=== PATIENT | male | born 1955 | race African-American/Black ===

== ENCOUNTER 2016-10-16 07:04 | Inpatient (IN) | payer MEDICAID ==
[~2016-10-16] VITALS: Ht 180.3 cm; Wt 77.3 kg
[~2016-10-16 07:04] MED LIST: TAMS0.4C32 PO
[2016-10-16] MEDS ORDERED: KETOROLAC TROMETHAMINE 60 MG/2 ML VIAL IM ONE (07:45)
[2016-10-16] MEDS ORDERED: KETOROLAC TROMETHAMINE 30 MG/ML VIAL IM ONE (07:45)
[2016-10-16 07:56] LABS: BASOPHILS % (AUTO) 0.3 % (0.0-2.0); EOSINOPHILS % (AUTO) 3.2 % (1.0-6.0); HEMOGLOBIN 8.6 g/dL (13.5-17.5); LYMPHOCYTES # (AUTO) 1.2 K/uL (1.0-4.8); LYMPHOCYTES % (AUTO) 11.4 % (22.0-44.0); MEAN CORPUSCULAR HEMOGLOBIN 26.6 pg (26.0-34.0); MEAN CORPUSCULAR HGB CONC 31.8 G/dL (31.0-37.0); MEAN CORPUSCULAR VOLUME 84 fL (80-100); MONOCYTES # (AUTO) 0.9 K/uL (0.1-1.0); NEUTROPHILS # (AUTO) 8.2 K/uL (1.8-7.7); NEUTROPHILS % (AUTO) 77.1 % (40.0-70.0); PLATELET COUNT (AUTO) 560 K/uL (150-450); RED BLOOD CELL COUNT(AUTO) 3.22 MIL/uL (4.50-5.90); WHITE BLOOD COUNT (AUTO) 10.7 K/uL (4.5-11.0)
[2016-10-16 08:06] LABS: CALCIUM, TOTAL 8.8 mg/dL (8.8-10.5); CREATININE 1.48 mg/dL (0.60-1.30); POTASSIUM 4.3 mmol/L (3.5-5.1)
[2016-10-16 08:12] LABS: ALBUMIN 3.1 g/dL (3.4-5.0); BILIRUBIN,TOTAL 0.2 mg/dL (0.1-1.0); TOTAL PROTEIN, SERUM 7.3 g/dL (6.4-8.2)
[2016-10-16 08:24] LABS: APPEARANCE,URINE CLEAR (CLEAR); GLUCOSE, URINE (UA) NEGATIVE (NEGATIVE); KETONES,URINE NEGATIVE (NEGATIVE); LEUKOCYTE ESTERASE ,URINE NEGATIVE (NEGATIVE); OCCULT BLOOD,URINE TRACE (NEGATIVE); PH,URINE 6.5 (5.0-8.0); PROTEIN,URINE TRACE (NEGATIVE)
[2016-10-16 08:29] LABS: ADD UA MICROSCOPIC YES
[2016-10-16 08:30] LABS: SQUAMOUS EPITHELIAL CELL,UR Rare /LPF (None Seen); WBC,URINE None Seen /HPF (0-5)
[2016-10-16] MEDS ORDERED: PANTOPRAZOLE SODIUM 40 MG/VIAL IVP ONE (09:15)
[2016-10-16] MEDS ORDERED: MORPHINE SULFATE 4 MG/ML SYRINGE IVP PRN (10:00)
[2016-10-16] MEDS ORDERED: ONDANSETRON HCL 4 MG/2 ML VIAL IVP PRN ×2 (10:00→15:30)
[2016-10-16 11:20] VITALS: BP 140/82
[2016-10-16] MEDS ORDERED: INFLUENZA VIRUS VACCINE QVS 2016-17 (3YR+)/PF 60 MCG/0.5 ML SYRINGE IM ONE (12:00)
[2016-10-16] MEDS ORDERED: PNEUMOCOCCAL VACCINE POLYVALENT 0.5 ML VIAL [PPSV23] IM ONE (12:00)
[2016-10-16] MEDS ORDERED: ALBUTEROL SULFATE 2.5 MG/0.5 ML NEB SOLUTION NEB PRN (15:30)
[2016-10-16] MEDS ORDERED: MAGNESIUM HYDROXIDE SUSPENSION 30 ML UDCUP PO PRN (15:30)
[2016-10-16] MEDS ORDERED: ACETAMINOPHEN 325 MG TABLET PO PRN (15:30)
[2016-10-16] MEDS ORDERED: IPRATROPIUM BROMIDE 0.5 MG/2.5 ML NEB SOLUTION NEB PRN (15:30)
[2016-10-16] MEDS ORDERED: BISACODYL 10 MG RECTAL RECTAL SUPPOSITORY PR PRN (15:30)
[2016-10-16 16:25] VITALS: BP 146/82
[2016-10-16 19:43] VITALS: BP 149/87
[2016-10-16] MEDS: DOCUSATE SODIUM 100 MG CAPSULE PO SCH (21:10)
[2016-10-16] MEDS: MORPHINE SULFATE 2 MG/ML SYRINGE IVP PRN (21:10)
[2016-10-16] MEDS: ZOLPIDEM TARTRATE 5 MG TABLET PO PRN (22:20)
[2016-10-16 23:53] VITALS: BP 138/70
[2016-10-17] MEDS ORDERED: PROPOFOL 1% 20 ML VIAL IVP ONE (00:41)
[2016-10-17 05:46] VITALS: BP 96/48
[2016-10-17 06:01] VITALS: BP 134/90
[2016-10-17] MEDS: MORPHINE SULFATE 2 MG/ML SYRINGE IVP PRN ×3 (06:11→23:29)
[2016-10-17 06:32] LABS: PROTHROMBIN TIME 10.7 SEC (9.4-11.6)
[2016-10-17 07:28] VITALS: BP 149/89
[2016-10-17] MEDS: DOCUSATE SODIUM 100 MG CAPSULE PO SCH ×2 (08:35→20:14)
[2016-10-17] MEDS: PANTOPRAZOLE SODIUM 40 MG/VIAL IVP SCH (08:42)
[2016-10-17] MEDS ORDERED: PANTOPRAZOLE SODIUM 40 MG/VIAL IVP SCH (09:00)
[2016-10-17] MEDS ORDERED: SODIUM CHLORIDE 0.9% 1,000 ML IV ONE ×2 (10:51→11:00)
[2016-10-17 16:20] LABS: CARCINOEMBRYONIC AG 9.5 ng/mL (0.0-4.7)
[2016-10-17 20:03] VITALS: BP 130/78
[2016-10-17 23:14] VITALS: BP 134/83
[2016-10-17] MEDS: ZOLPIDEM TARTRATE 5 MG TABLET PO PRN (23:29)
[2016-10-18 05:09] VITALS: BP 142/87
[2016-10-18 07:30] VITALS: BP 155/93
[2016-10-18] MEDS: PANTOPRAZOLE SODIUM 40 MG/VIAL IVP SCH (08:24)
[2016-10-18] MEDS ORDERED: GELATIN SPONGE,ABSORBABLE 12-7 MM TP ONE (10:04)
[2016-10-18] MEDS ORDERED: LIDOCAINE HCL/PF 1% 30 ML VIAL ONE ×2 (10:04→14:07)
[2016-10-18] MEDS ORDERED: FentaNYL CITRATE-PF 100 MCG/2 ML VIAL ONE ×2 (10:04→14:06)
[2016-10-18] MEDS ORDERED: MIDAZOLAM HCL 2 MG/2 ML VIAL ONE ×2 (10:04→14:06)
[2016-10-18] MEDS ORDERED: TAMSULOSIN HCL 0.4 MG CAPSULE PO SCH (10:45)
[2016-10-18] MEDS: DOCUSATE SODIUM 100 MG CAPSULE PO SCH ×2 (10:53→20:44)
[2016-10-18] MEDS: MORPHINE SULFATE 2 MG/ML SYRINGE IVP PRN ×3 (10:53→20:44)
[2016-10-18 11:15] VITALS: BP 136/89
[2016-10-18 15:40] VITALS: BP 148/87
[2016-10-18 20:06] VITALS: BP 144/81
[2016-10-18 23:35] VITALS: BP 136/81
[2016-10-19 04:57] VITALS: BP 155/84
[2016-10-19] MEDS: MORPHINE SULFATE 2 MG/ML SYRINGE IVP PRN (05:02)
[2016-10-19] MEDS: DOCUSATE SODIUM 100 MG CAPSULE PO SCH (07:41)
[2016-10-19] MEDS: PANTOPRAZOLE SODIUM 40 MG/VIAL IVP SCH (07:41)
[2016-10-19] MEDS: HYDROCODONE/ACETAMINOPHEN 5-325 MG TABLET PO PRN ×2 (07:43→19:46)
[2016-10-19 07:50] VITALS: BP 145/85
[2016-10-19] MEDS ORDERED: SOD FERRIC GLUC COMPLX/SUCROSE 125 MG in SODIUM CHLORIDE 0.9% 100 ML IV SCH (11:00)
[2016-10-19 12:01] LABS: GLUCOSE,POINT OF CARE 103 MG/DL (70-110)
[2016-10-19 12:05] VITALS: BP 130/86
[2016-10-19] MEDS ORDERED: SODIUM CHLORIDE 0.9% 500 ML IV ONE (12:40)
[2016-10-19 15:53] VITALS: BP 132/81
[2016-10-19] MEDS ORDERED: TAMSULOSIN HCL 0.4 MG CAPSULE PO SCH (18:00)
[2016-10-19 19:44] VITALS: BP 149/82
[2016-10-19] MEDS ORDERED: PANT20TA PO (20:06)
[2016-10-19] MEDS ORDERED: CLAR250T3 PO (20:07)
[2016-10-19] MEDS ORDERED: AMOX250T PO (20:10)
[2016-10-19] MEDS ORDERED: MORP15 PO ×2 (20:12→20:16)
[2016-10-19] MEDS ORDERED: HYDR-309 PO (20:15)
[2016-10-19] MEDS ORDERED: HYDR-305 PO (20:15)
[2016-10-19] MEDS ORDERED: TAMS0.4C32 PO (20:33)
[2016-10-21] MEDS ORDERED: SODIUM CHLORIDE 0.9% 1,000 ML IV ONE (11:00)
== END 2016-10-19 20:45 | disposition home or self-care (01) | DRG 500 ==
LOC: EMS 07:04 → 6N 09:57
PROVIDERS: ADMIT Hospitalist; ATTEND Hospitalist
PROC: 3E0234Z Introduction of Serum, Toxoid and Vaccine into Muscle, Percutaneous Approach (ICD-10-PCS; 2016-10-16)
PROC: 0DB68ZX Excision of Stomach, Via Natural or Artificial Opening Endoscopic, Diagnostic (ICD-10-PCS; principal; 2016-10-17 12:00)
PROC: 0HB4XZX Excision of Neck Skin, External Approach, Diagnostic (ICD-10-PCS; 2016-10-18)
DX: C61 Malignant neoplasm of prostate (principal); C78.7 Secondary malignant neoplasm of liver and intrahepatic bile duct; N13.30 Unspecified hydronephrosis; E44.1 Mild protein-calorie malnutrition; B96.81 Helicobacter pylori [H. pylori] as the cause of diseases classified elsewhere; F17.210 Nicotine dependence, cigarettes, uncomplicated; K92.1 Melena; D50.9 Iron deficiency anemia, unspecified; K29.50 Unspecified chronic gastritis without bleeding; K59.00 Constipation, unspecified; N40.0 Benign prostatic hyperplasia without lower urinary tract symptoms; Z53.29 Procedure and treatment not carried out because of patient's decision for other reasons; Z98.890 Other specified postprocedural states; Z79.899 Other long term (current) drug therapy; Z80.9 Family history of malignant neoplasm, unspecified; Z23 Encounter for immunization
CPT/HCPCS: 38505; 47000; 74176; 76942; 82105; 82271; 82378; 82607; 82728; 82746; 82962; 83540; 83550; 83615; 84153; 86301; 88305; 88312; 88341; 88342; 90471; 93971; 96372; 96374; 99285; C9113; J1885; J2250; J2270; J2704; J2916; J3010; J3490; J7030; J7040; J7050

== ENCOUNTER → 2017-04-01 | Outpatient (CLI) | payer OTHER ==
[~2017-04-01] MED LIST changes: +AMOX250T PO; +CLAR250T3 PO; +HYDR-305 PO; +HYDR-309 PO; +IOVERSOL 350 MG/ML 150 ML VIAL ONE; +MORP15 PO; +PANT20TA PO; +SODIUM CHLORIDE 0.9% 100 ML ONE
== END | disposition home or self-care (01) ==
LOC: RADMN 07:56
PROVIDERS: ATTEND Internal Medicine Hematology & Oncology
DX: C61 Malignant neoplasm of prostate (principal); R16.0 Hepatomegaly, not elsewhere classified; J43.8 Other emphysema; I25.10 Atherosclerotic heart disease of native coronary artery without angina pectoris; I70.0 Atherosclerosis of aorta; N20.0 Calculus of kidney; N26.1 Atrophy of kidney (terminal); N32.89 Other specified disorders of bladder; K40.90 Unilateral inguinal hernia, without obstruction or gangrene, not specified as recurrent; M47.819 Spondylosis without myelopathy or radiculopathy, site unspecified; N40.0 Benign prostatic hyperplasia without lower urinary tract symptoms; C79.51 Secondary malignant neoplasm of bone
CPT/HCPCS: 71260; 72193; 74160; J7050; Q9967

== ENCOUNTER → 2018-01-20 | Outpatient (CLI) | payer OTHER ==
[~2018-01-20] MED LIST changes: -IOVERSOL 350 MG/ML 150 ML VIAL ONE; -SODIUM CHLORIDE 0.9% 100 ML ONE
== END | disposition home or self-care (01) ==
LOC: RADPV 10:04
PROVIDERS: ATTEND Hospitalist
DX: N13.2 Hydronephrosis with renal and ureteral calculous obstruction (principal); N27.0 Small kidney, unilateral; N18.3 Chronic kidney disease, stage 3 (moderate)
CPT/HCPCS: 76770

== ENCOUNTER 2018-05-08 03:48 | Emergency (ER) | payer OTHER ==
[~2018-05-08] VITALS: Ht 180.3 cm; Wt 75.0 kg
[2018-05-08] MEDS ORDERED: PRED20 PO (04:09)
[2018-05-08] MEDS ORDERED: BICA50TA8 PO (04:09)
[2018-05-08] MEDS ORDERED: HYDR-308 PO (04:09)
[2018-05-08] MEDS ORDERED: ABIR250T PO (04:09)
[2018-05-08] MEDS ORDERED: LUPR3.75 IM (04:09)
[2018-05-08] MEDS ORDERED: KETOROLAC TROMETHAMINE 60 MG/2 ML VIAL IM ONE (05:30)
[2018-05-08 05:45] LABS: BASOPHILS % (AUTO) 1.8 % (0.0-2.0); EOSINOPHILS % (AUTO) 5.7 % (1.0-6.0); HEMATOCRIT 29.3 % (41-53); HEMOGLOBIN 10.2 g/dL (13.5-17.5); LYMPHOCYTES # (AUTO) 1.7 K/uL (1.0-4.8); LYMPHOCYTES % (AUTO) 19.7 % (22.0-44.0); MEAN CORPUSCULAR HEMOGLOBIN 31.1 pg (26.0-34.0); MEAN CORPUSCULAR HGB CONC 34.6 G/dL (31.0-37.0); MEAN CORPUSCULAR VOLUME 90 fL (80-100); MONOCYTES # (AUTO) 0.7 K/uL (0.1-1.0); MONOCYTES % (AUTO) 8.1 % (2.0-9.0); NEUTROPHILS # (AUTO) 5.6 K/uL (1.8-7.7); NEUTROPHILS % (AUTO) 64.7 % (40.0-70.0); PLATELET COUNT (AUTO) 367 K/uL (150-450); RED BLOOD CELL COUNT(AUTO) 3.27 MIL/uL (4.50-5.90); RED CELL DISTRIBUTION WIDTH 14.8 % (11.5-14.5)
[2018-05-08 05:53] LABS: CALCIUM, TOTAL 8.6 mg/dL (8.8-10.5); CREATININE 2.09 mg/dL (0.60-1.30); POTASSIUM 4.1 mmol/L (3.5-5.1)
[2018-05-08 06:01] LABS: ALBUMIN 3.3 g/dL (3.4-5.0); BILIRUBIN,TOTAL 0.3 mg/dL (0.1-1.0); TOTAL PROTEIN, SERUM 6.9 g/dL (6.4-8.2)
[2018-05-08 06:45] VITALS: BP 145/89
== END 2018-05-08 07:33 | disposition home or self-care (01) ==
LOC: EMS 03:48
DX: M25.562 Pain in left knee (principal); F17.210 Nicotine dependence, cigarettes, uncomplicated; D64.9 Anemia, unspecified; Z79.899 Other long term (current) drug therapy; Z85.46 Personal history of malignant neoplasm of prostate; Z98.890 Other specified postprocedural states
CPT/HCPCS: 36415; 73562; 80053; 85025; 85379; 96372; 99285; J1885; 29530

== ENCOUNTER 2018-06-22 23:48 | Emergency (ER) | payer OTHER ==
[~2018-06-22] VITALS: Ht 180.3 cm; Wt 75.0 kg
[~2018-06-22 23:48] MED LIST changes: +ABIR250T PO; -AMOX250T PO; +BICA50TA8 PO; -CLAR250T3 PO; -HYDR-305 PO; +HYDR-308 PO; -HYDR-309 PO; +LUPR3.75 IM; -MORP15 PO; -PANT20TA PO; +PRED20 PO; -TAMS0.4C32 PO
[2018-06-23] MEDS ORDERED: HYDROCODONE/ACETAMINOPHEN 5-325 MG TABLET PO ONE (03:15)
[2018-06-23 05:21] VITALS: BP 137/89
== END 2018-06-23 05:22 | disposition home or self-care (01) ==
LOC: EMS 23:48
DX: M79.605 Pain in left leg (principal); C79.51 Secondary malignant neoplasm of bone; F17.210 Nicotine dependence, cigarettes, uncomplicated; Z85.46 Personal history of malignant neoplasm of prostate; Z79.899 Other long term (current) drug therapy
CPT/HCPCS: 72100; 72170; 73552; 99406

== ENCOUNTER → 2018-06-24 | Outpatient (CLI) | payer OTHER | END | disposition home or self-care (01) | LOC: RADMN 08:13 | PROVIDERS: ATTEND Internal Medicine Hematology & Oncology | DX: N13.30 Unspecified hydronephrosis (principal); N20.0 Calculus of kidney; C79.51 Secondary malignant neoplasm of bone; C61 Malignant neoplasm of prostate | CPT/HCPCS: 71250; 72192; 74150 ==

== ENCOUNTER 2018-07-18 16:24 | Emergency (ER) | payer OTHER ==
[~2018-07-18] VITALS: Ht 180.3 cm; Wt 77.3 kg
[2018-07-18 20:08] LABS: BASOPHILS % (AUTO) 1.2 % (0.0-2.0); HEMATOCRIT 25.3 % (41-53); HEMOGLOBIN 8.2 g/dL (13.5-17.5); LYMPHOCYTES # (AUTO) 1.4 K/uL (1.0-4.8); LYMPHOCYTES % (AUTO) 13.1 % (22.0-44.0); MEAN CORPUSCULAR HGB CONC 32.5 G/dL (31.0-37.0); MEAN CORPUSCULAR VOLUME 86 fL (80-100); MONOCYTES % (AUTO) 8.9 % (2.0-9.0); NEUTROPHILS # (AUTO) 7.9 K/uL (1.8-7.7); NEUTROPHILS % (AUTO) 72.8 % (40.0-70.0); PLATELET COUNT (AUTO) 453 K/uL (150-450); RED BLOOD CELL COUNT(AUTO) 2.94 MIL/uL (4.50-5.90); RED CELL DISTRIBUTION WIDTH 16.2 % (11.5-14.5)
[2018-07-18 20:20] LABS: CALCIUM, TOTAL 8.5 mg/dL (8.8-10.5); CREATININE 1.45 mg/dL (0.60-1.30)
[2018-07-18 20:44] LABS: ALBUMIN 3.2 g/dL (3.4-5.0); BILIRUBIN,TOTAL 0.2 mg/dL (0.1-1.0); TOTAL PROTEIN, SERUM 7.3 g/dL (6.4-8.2)
[2018-07-18] MEDS ORDERED: HYDROCODONE/ACETAMINOPHEN 5-325 MG TABLET PO ONE (21:30)
[2018-07-18 22:05] VITALS: BP 165/90
== END 2018-07-18 22:12 | disposition home or self-care (01) ==
LOC: EMS 16:25
DX: R60.0 Localized edema (principal); M79.89 Other specified soft tissue disorders; F17.210 Nicotine dependence, cigarettes, uncomplicated; Z85.46 Personal history of malignant neoplasm of prostate
CPT/HCPCS: 93005; 93971

== ENCOUNTER 2018-07-31 13:54 | Emergency (ER) | payer OTHER ==
[~2018-07-31] VITALS: Ht 180.3 cm; Wt 76.4 kg
[2018-07-31 16:33] VITALS: BP 132/84
== END 2018-07-31 17:15 | disposition home or self-care (01) ==
LOC: EMS 13:55
DX: M79.662 Pain in left lower leg (principal); C72.0 Malignant neoplasm of spinal cord; Z85.46 Personal history of malignant neoplasm of prostate; F17.210 Nicotine dependence, cigarettes, uncomplicated; Z79.899 Other long term (current) drug therapy
CPT/HCPCS: 72100; 93971

== ENCOUNTER → 2018-12-15 | Outpatient (CLI) | payer OTHER ==
[~2018-12-15] MED LIST changes: +BARIUM SULFATE 0.1% SUSPENSION 450 ML BOTTLE ONE
== END | disposition home or self-care (01) ==
LOC: RADMN 08:38
PROVIDERS: ATTEND Internal Medicine Hematology & Oncology
DX: K76.9 Liver disease, unspecified (principal); R59.0 Localized enlarged lymph nodes; C61 Malignant neoplasm of prostate
CPT/HCPCS: 71250; 72192; 74150

== ENCOUNTER 2019-01-07 07:59 | Emergency (ER) | payer OTHER ==
[~2019-01-07] VITALS: Ht 180.3 cm; Wt 72.7 kg
[~2019-01-07 07:59] MED LIST changes: -BARIUM SULFATE 0.1% SUSPENSION 450 ML BOTTLE ONE
[2019-01-07] MEDS ORDERED: MORPHINE SULFATE 4 MG/ML SYRINGE IM ONE (08:30)
[2019-01-07 10:38] VITALS: BP 152/95
== END 2019-01-07 10:44 | disposition home or self-care (01) ==
LOC: EMS 08:03
DX: M79.604 Pain in right leg (principal); F17.210 Nicotine dependence, cigarettes, uncomplicated; F12.90 Cannabis use, unspecified, uncomplicated; Z85.46 Personal history of malignant neoplasm of prostate; Z79.899 Other long term (current) drug therapy; Z98.890 Other specified postprocedural states
CPT/HCPCS: 73590; 93971; 96372; 99284; J2270